=== PATIENT | male | born 2000 | race African-American/Black ===

== ENCOUNTER → 2023-09-02 | Outpatient (CLI) | payer OTHER ==
[~2023-09-02] MED LIST: ISOVUE-370 76% 100ML VIAL As Ordered ONE
== END ==
LOC: M RAD 09:45
PROVIDERS: ATTEND Physician Assistant
DX: R31.9 Hematuria, unspecified (principal); R45.89 Other symptoms and signs involving emotional state

== ENCOUNTER 2023-09-05 09:06 | Emergency (ER) | payer OTHER ==
[~2023-09-05] VITALS: Ht 172.7 cm; Wt 70.2 kg
[2023-09-05 09:07] VITALS: BP 142/79; O2SAT 99
[2023-09-05] MEDS ORDERED: ACET325C5 PO (09:46)
[2023-09-05] MEDS ORDERED: IBUPROFEN 600MG TAB PO ONE (09:55)
[2023-09-05 10:25] VITALS: TEMP 100.4
== END 2023-09-05 10:28 | disposition home or self-care (01) ==
LOC: M ED 09:06
DX: J06.9 Acute upper respiratory infection, unspecified (principal); Z91.013 Allergy to seafood

== ENCOUNTER → 2024-08-14 | Outpatient (CLI) | payer OTHER ==
[~2024-08-14] MED LIST changes: +ACET325C5 PO; +ISOVUE-300 61% 100ML VIAL As Ordered ONE; -ISOVUE-370 76% 100ML VIAL As Ordered ONE; +LIDOCAINE 1% MDV 20ML VIAL As Ordered ONE; +PROHANCE 279.3MG/ML 5ML VIAL As Ordered ONE
== END ==
LOC: M RAD 05-31 08:19
PROVIDERS: ATTEND Physician Assistant
DX: M25.511 Pain in right shoulder (principal); S43.401A Unspecified sprain of right shoulder joint, initial encounter; X58.XXXA Exposure to other specified factors, initial encounter; Y92.9 Unspecified place or not applicable
CPT/HCPCS: 23350; 73223; 77002; A9576; Q9967

== ENCOUNTER 2025-01-21 09:53 | Emergency (ER) | payer OTHER ==
[~2025-01-21] VITALS: Ht 172.7 cm; Wt 71.5 kg
[~2025-01-21 09:53] MED LIST changes: -ISOVUE-300 61% 100ML VIAL As Ordered ONE; -LIDOCAINE 1% MDV 20ML VIAL As Ordered ONE; -PROHANCE 279.3MG/ML 5ML VIAL As Ordered ONE
[2025-01-21] MEDS ORDERED: CAPS0.022 (10:04)
[2025-01-21] MEDS ORDERED: ACET-840 (10:04)
[2025-01-21] MEDS ORDERED: NAPR-885 (10:04)
[2025-01-21] MEDS: ACETAMINOPHEN 500 MG TAB PO ONE (10:52)
[2025-01-21 12:11] VITALS: TEMP 99.6
[2025-01-21 12:32] VITALS: BP 130/60; O2SAT 99
== END 2025-01-21 13:04 | disposition home or self-care (01) ==
LOC: M ED 09:53
DX: R52 Pain, unspecified (principal); B34.9 Viral infection, unspecified; Z91.013 Allergy to seafood; Z79.1 Long term (current) use of non-steroidal anti-inflammatories (NSAID); Z79.899 Other long term (current) drug therapy